=== PATIENT | female | born 1985 | race Hispanic/Latino ===

== ENCOUNTER 2023-07-31 17:43 | Emergency (ER) | payer OTHER ==
[2023-07-31] MEDS ORDERED: Cyclobenzaprine 10 MG TAB ONE (19:16)
[2023-07-31] MEDS ORDERED: Ondansetron ODT 4 MG TAB ONE (19:16)
[2023-07-31] MEDS ORDERED: HYDROmorphone 0.5 MG/0.5 ML SYRINGE ONE (19:17)
[2023-07-31 19:21] LABS: Bilirubin Negative (Negative); Blood, Urine Negative (Negative); Clarity Hazy (Clear); Glucose, Urine (Dipstick) Negative (Negative); Ketone, Urine Negative (Negative); Leukocyte Negative (Negative); Nitrite Negative (Negative); Protein, Urine (Dipstick) Negative (Neg-Trace); Urobilinogen 0.2 mg/dL (Less than 2)
[2023-07-31 19:26] LABS: Bacteria/HPF Rare-Few HPF (None Seen); CAUTI Indications for Culture Pelvic or flank pain; RBC/HPF 0-3 HPF (0-3); WBC/HPF 0-3 HPF (0-3)
[2023-07-31 19:27] LABS: Urine Culture Reflex No No
== END 2023-07-31 19:57 | disposition home or self-care (01) ==
LOC: MADERS 17:43
DX: S33.5XXA Sprain of ligaments of lumbar spine, initial encounter (principal); X50.9XXA Other and unspecified overexertion or strenuous movements or postures, initial encounter
CPT/HCPCS: 72100; 81001; 96372; J1170; Q0162